=== PATIENT | female | born 1955 | race Caucasian/White ===

== ENCOUNTER 2016-07-21 09:52 | Outpatient (CLI) | payer OTHER ==
--- NOTE | 2016-07-21 13:16 | DIAGNOSTIC IMAGING REPORT ---
PROCEDURE: MG BILATERAL SCREENING W/CAD INDICATION: Screening. Family history breast carcinoma (mother). TECHNIQUE: Bilateral CC and MLO digital views. COMPARISON: Compared to 07/20/2015, 07/15/2014, and 07/08/2013. FINDINGS: Computer-aided detection applied. Dense parenchymal pattern with a few dystrophic calcifications. No change. IMPRESSION: 1. Negative mammogram. RESULT CODE: 1- Negative. A. A negative report should not delay biopsy if a dominant or clinically suspicious mass is present. 10-15% of cancers are not identified by x-ray. B. A negative report may reinforce clinical impression. C. Adenosis and dense breasts may obscure an underlying neoplasm. D. False positive reports average 6-10%. E.. A yearly screening mammogram is recommended. A reminder letter will be scheduled.
== END 2016-07-21 23:00 ==
LOC: MAM SRH 09:52
DX: Z12.31 Encounter for screening mammogram for malignant neoplasm of breast (principal); Z80.3 Family history of malignant neoplasm of breast

== ENCOUNTER 2016-08-18 10:44 | Outpatient (CLI) | payer OTHER ==
--- NOTE | 2016-08-18 11:17 | DIAGNOSTIC IMAGING REPORT ---
PROCEDURE: DEXA BONE DENSITY STUDY CLINICAL INDICATION: OSTEOPOROSIS COMPARISON: 10/16/2012 DEXA FINDINGS: LUMBAR SPINE: Bone mineral density 0.723 g/cm2, T score -2.9 osteoporosis which represents a 2.9% decrease from the previous study LEFT HIP: Bone mineral density 0.673 g/cm2, T score -2.2 osteopenia which represents a 7.5% decrease from the previous study LEFT FEMORAL NECK: Bone mineral density 0.584 g/cm2, T score -2.4 osteopenia which represents a 6.8% decrease from the previous study FRACTURE RISK CALCULATION ( when applicable): 10-year fracture risk of a major osteoporotic fracture and of a hip fracture not reported because some T-score at or below -2.5 (T score greater or equal to -1.0 to: NORMAL) (T score from -1.1 to -2.4: OSTEOPENIA) (T score ess than or equal to -2.5: OSTEOPOROSIS) IMPRESSION: 1. Lumbar spine osteoporosis, osteopenia femoral neck and hip.
== END 2016-08-18 23:00 ==
LOC: XR SRH 10:44
DX: M81.0 Age-related osteoporosis without current pathological fracture (principal)